=== PATIENT | female | born 1945 | race African-American/Black ===

== ENCOUNTER 2016-12-31 15:33 | Inpatient (IN) | payer OTHER ==
[~2016-12-31] VITALS: Ht 170.2 cm; Wt 75.3 kg
--- NOTE | ~2016-12-31 | EKG ---
[address] [place] [address] ELECTROCARDIOGRAM REPORT Name: BRITT BIANCHI Room #: 460-P [facility] ..#: [id number] Admission: 12/31/16 Attend Phys: Karlos Park MD Discharge: Date of : 41 Report #: [id number] THIS REPORT FOR: //name// [facility] ED Test Date: 2016-12-31 Test Time: 15:46:19 Pat Name: BRITT BIANCHI Department: Room: [facility] Gender: F [employer] Shift Supervisor: JAZMYN : 1945 Requested By: Lazara Velasquez Order Number: [id number] MD: Jed Camejo Measurements Intervals [place] Rate: 101 P: 63 ME: 180 QRS: -30 QRSD: 97 T: 180 QT: 366 QTc: 475 Interpretive Statements Sinus tachycardia LVH with secondary repolarization abnormality Inferior infarct, old Poor R wave progression No previous ECG available for comparison Electronically Signed On 01-01-2017 7:45:55 CDT by Jed Camejo [email or web address] <ELECTRONICALLY SIGNED> By: Jed Camejo MD, [facility] 01/01/17 0745 [id number] Jed Camejo MD, FACC /EPI
[2016-12-31 15:37] VITALS: BP 97/42
[2016-12-31 16:06] LABS: HEMOGLOBIN 11.2 gm/dL (12.0-15.0); MCH 28.7 pg (26.0-34.0); MCV 86.8 fL (80.0-100.0); PLATELET COUNT 333 thou/uL (150-400); RBC 3.91 mil/uL (4.20-5.00); RDW 18.7 % (10.5-14.5); WBC 13.7 thou/uL (4.0-11.0)
[2016-12-31 16:11] LABS: MANUAL DIFF YES
[2016-12-31 16:32] LABS: ALBUMIN 2.5 g/dL (3.4-5.0); CALCIUM 9.1 mg/dL (8.5-10.1); CREATININE 2.6 mg/dL (0.6-1.0); TOTAL BILIRUBIN 0.4 mg/dL (<0.1-1.0); TOTAL PROTEIN 7.8 g/dL (6.4-8.2); TROPONIN-I 0.13 ng/mL (<0.04-0.07)
[2016-12-31 16:34] LABS: POTASSIUM 2.8 mmol/L (3.5-5.1)
[2016-12-31 16:43] LABS: ABSOLUTE NEUTROPHILS 11.4 thou/uL (1.4-8.2); ANISOCYTOSIS 1+; TOTAL CELL COUNT 100
[2016-12-31 17:16] LABS: URINE BILIRUBIN NEGATIVE (Negative); URINE BLOOD TRACE (Negative); URINE COLOR YELLOW; URINE GLUCOSE-RANDOM* NEGATIVE (Negative); URINE KETONES TRACE (Negative); URINE NITRITE POSITIVE (Negative); URINE PROTEIN (DIPSTICK) 1+ (Negative)
[2016-12-31 17:27] LABS: AMORPHOUS URATES Moderate /LPF (None Seen); BACTERIA >30 Many /HPF (None Seen); CASTS None Seen /LPF (None Seen); SQUAMOUS 0-3 Few /LPF (0-3); URINE RBC 3-10 Few /HPF (0-2)
[2016-12-31 18:14] VITALS: BP 134/66
[2016-12-31 18:47] VITALS: BP 141/76
[2016-12-31 20:00] VITALS: BP 137/74
[2016-12-31 23:58] VITALS: BP 128/71
[2017-01-01 04:23] VITALS: BP 117/62
[2017-01-01 06:32] LABS: HEMATOCRIT 32.2 % (37.0-47.0); HEMOGLOBIN 10.7 gm/dL (12.0-15.0); MCH 28.8 pg (26.0-34.0); MCHC 33.2 g/dL (28.0-37.0); MCV 86.5 fL (80.0-100.0); RBC 3.72 mil/uL (4.20-5.00); RDW 18.7 % (10.5-14.5); WBC 15.9 thou/uL (4.0-11.0)
[2017-01-01 06:50] LABS: CALCIUM 8.5 mg/dL (8.5-10.1)
[2017-01-01 06:52] LABS: CREATININE 1.4 mg/dL (0.6-1.0); POTASSIUM 4.6 mmol/L (3.5-5.1)
[2017-01-01 07:48] VITALS: BP 127/68
[2017-01-01 15:44] VITALS: BP 150/65
[2017-01-01 20:27] VITALS: BP 165/77
[2017-01-02 03:06] VITALS: BP 137/63
[2017-01-02 07:21] VITALS: BP 159/65
[2017-01-02 09:50] LABS: HEMATOCRIT 32.2 % (37.0-47.0); HEMOGLOBIN 10.4 gm/dL (12.0-15.0); MCHC 32.2 g/dL (28.0-37.0); RBC 3.71 mil/uL (4.20-5.00); WBC 10.3 thou/uL (4.0-11.0)
[2017-01-02 09:58] LABS: CALCIUM 8.8 mg/dL (8.5-10.1); CREATININE 0.9 mg/dL (0.6-1.0)
[2017-01-02 10:04] LABS: POTASSIUM 2.6 mmol/L (3.5-5.1)
[2017-01-02 11:06] VITALS: BP 161/80
[2017-01-02 15:06] VITALS: BP 166/80
[2017-01-02 19:56] VITALS: BP 155/82
[2017-01-03 04:00] VITALS: BP 145/73
[2017-01-03 06:29] LABS: MCH 28.8 pg (26.0-34.0); MCHC 33.4 g/dL (28.0-37.0); MCV 86.1 fL (80.0-100.0); RBC 3.14 mil/uL (4.20-5.00); RDW 18.4 % (10.5-14.5); WBC 10.4 thou/uL (4.0-11.0)
[2017-01-03 06:47] LABS: CALCIUM 8.3 mg/dL (8.5-10.1); CREATININE 0.8 mg/dL (0.6-1.0)
[2017-01-03 06:49] LABS: POTASSIUM 2.9 mmol/L (3.5-5.1)
[2017-01-03 07:26] VITALS: BP 158/78
[2017-01-03 11:18] VITALS: BP 162/67
[2017-01-03 11:42] VITALS: BP 162/67
[2017-01-03 15:24] VITALS: BP 150/69
[2017-01-03 18:45] LABS: MAGNESIUM 2.1 mg/dL (1.8-2.4); POTASSIUM 3.6 mmol/L (3.5-5.1)
[2017-01-03 20:20] VITALS: BP 145/73
[2017-01-04 03:17] VITALS: BP 158/77
[2017-01-04 05:39] LABS: ABSOLUTE NEUTROPHILS 7.2 thou/uL (1.4-8.2); BASOPHILS 0.9 % (0.0-2.0); EOSINOPHILS 2.2 % (0.0-3.0); HEMATOCRIT 30.1 % (37.0-47.0); LYMPHOCYTES 20.4 % (24.0-44.0); MCH 28.8 pg (26.0-34.0); MCHC 33.2 g/dL (28.0-37.0); MCV 86.6 fL (80.0-100.0); MONOCYTES 11.7 % (1.0-8.0); PLATELET COUNT 334 thou/uL (150-400); POLYS 64.8 % (36.0-66.0); RBC 3.48 mil/uL (4.20-5.00); RDW 18.8 % (10.5-14.5); WBC 11.2 thou/uL (4.0-11.0)
[2017-01-04 05:41] LABS: MANUAL DIFF NO
[2017-01-04 05:56] LABS: ALBUMIN 2.1 g/dL (3.4-5.0); CALCIUM 8.3 mg/dL (8.5-10.1); CREATININE 0.7 mg/dL (0.6-1.0); MAGNESIUM 1.6 mg/dL (1.8-2.4); POTASSIUM 3.2 mmol/L (3.5-5.1); TOTAL BILIRUBIN 0.6 mg/dL (<0.1-1.0); TOTAL PROTEIN 6.8 g/dL (6.4-8.2)
[2017-01-04 07:30] VITALS: BP 164/89
[2017-01-04 10:21] VITALS: BP 162/67
[2017-01-04 11:27] VITALS: BP 185/93
[2017-01-04] MEDS ORDERED: AUGMENTIN 875875 MG PO (15:32)
[2017-01-04] MEDS ORDERED: LISINOPRIL10 MG PO (16:23)
[2017-01-04] MEDS ORDERED: PROTONIX40 M1 PO (16:24)
[2017-01-04 17:09] VITALS: BP 162/67
== END 2017-01-04 18:31 | disposition home or self-care (01) | DRG 871 ==
LOC: ER 15:33 → EROBS 17:39 → 4W 17:39
PROVIDERS: Hospitalist; Nurse Practitioner; Physician Assistant
DX: A41.9 Sepsis, unspecified organism (principal); N17.0 Acute kidney failure with tubular necrosis; L89.323 Pressure ulcer of left buttock, stage 3; L89.313 Pressure ulcer of right buttock, stage 3; N39.0 Urinary tract infection, site not specified; E87.6 Hypokalemia; R65.20 Severe sepsis without septic shock; E78.5 Hyperlipidemia, unspecified; N18.9 Chronic kidney disease, unspecified; I12.9 Hypertensive chronic kidney disease with stage 1 through stage 4 chronic kidney disease, or unspecified chronic kidney disease; Z86.73 Personal history of transient ischemic attack (TIA), and cerebral infarction without residual deficits
CPT/HCPCS: 10045

== ENCOUNTER → 2017-01-22 | Outpatient (CLI) | payer OTHER ==
[~2017-01-22] MED LIST: AUGMENTIN 875875 MG PO; LISINOPRIL10 MG PO; PROTONIX40 M1 PO
== END ==
LOC: HYPER 01-17 15:08
DX: L89.153 Pressure ulcer of sacral region, stage 3 (principal); I10 Essential (primary) hypertension; E78.5 Hyperlipidemia, unspecified; M19.90 Unspecified osteoarthritis, unspecified site; F03.90 Unspecified dementia, unspecified severity, without behavioral disturbance, psychotic disturbance, mood disturbance, and anxiety; Z86.73 Personal history of transient ischemic attack (TIA), and cerebral infarction without residual deficits; Z86.11 Personal history of tuberculosis